=== PATIENT | female | born 1985 | race Two or more races ===

== ENCOUNTER 2018-05-29 23:56 | Emergency (ER) | payer MEDICAID ==
[~2018-05-29] VITALS: Ht 167.6 cm; Wt 58.1 kg
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
--- NOTE | 2018-05-30 00:08 | NUR ---
JODY HOSKINS AT BEDSIDE.
[2018-05-30] MEDS ORDERED: IV NS 0.9% 1,000 ML BAG IV ONE (00:30)
--- NOTE | 2018-05-30 00:56 | NUR ---
PT TAKEN TO CT.
--- NOTE | 2018-05-30 01:30 | NUR ---
Patient is resting comfortably in bed with eyes closed. Easily aroused. NAD NOTED.
[2018-05-30] MEDS ORDERED: BACI/NEOM/POLY B OINT PKT 1 UDPKT PACKET TP ONE (02:30)
[2018-05-30] MEDS ORDERED: TDAP [DIPH/PERTUSSIS/TET] 0.5 ML VIAL IM ONE ×2 (02:30→02:36)
[2018-05-30] MEDS ORDERED: BACI/NEOM/POLY B OINT PKT 1 UDPKT PACKET ONE (02:36)
[2018-05-30 02:58] VITALS: BP 112/86
--- NOTE | 2018-05-30 03:00 | NUR ---
Patient discharged to home in stable condition. Written and verbal after care instructions given. Patient verbalizes understanding of instruction. IV removed. Catheter intact and site benign. Pressure and 4x4 applied to site. No bleeding noted. Pt ambulatory with steady gait.
== END 2018-05-30 03:01 | disposition home or self-care (01) ==
LOC: ER 23:59
DX: S06.0X0A Concussion without loss of consciousness, initial encounter (principal); S50.311A Abrasion of right elbow, initial encounter; S90.511A Abrasion, right ankle, initial encounter; R51 Headache; Z90.89 Acquired absence of other organs; W05.1XXA Fall from non-moving nonmotorized scooter, initial encounter; Y93.89 Activity, other specified; Y92.89 Other specified places as the place of occurrence of the external cause; Y99.8 Other external cause status
CPT/HCPCS: 36415; 70450-TC; 72125-TC; 84702-TC; 90715; J7030